=== PATIENT | male | born 1980 | race Caucasian/White ===

== ENCOUNTER 2021-05-05 06:07 | Emergency (ER) | payer MEDICAID ==
--- NOTE | 2021-05-05 06:19 | EDM.PDOC ---
ED HPI GENERAL MEDICAL PROBLEM - General Chief Complaint: Chest Pain Stated Complaint: [facility] Time Seen by Provider: 05/05/21 06:08 Source of Information: Reports: Patient, EMS History Limitations: Reports: No Limitations - History of Present Illness INITIAL COMMENTS - FREE TEXT/NARRATIVE: Kevin is a 40-year-old male brought in by [facility] from [facility] for evalua tion of crushing retrosternal chest pain that awoke the patient at 3 AM today. Patient has a history significant for meth induced pericarditis in 2013 but his last usage of methamphetamine was on 08 March 2021. The patient denies any change of pain with deep inspiration. EMS did a twelve-lead EKG showing repolarization abnormality with ST elevation in most of the leads. Patient has a past medical history significant for methamphetamine use. He is gone through detox and now is in treatment at [facility] for this. He was recently started on amlodipine 10 mg daily and lisinopril 5 mg daily for management of hypertension. He also has a history of chronic low back pain for which he was on gabapentin 300 mg, however, he has not taken this since 03/11/2021. The patient denies any fever, chills, cough or shortness of breath. He is a bit anxious. He denies any nausea or vomiting. He did have a near syncopal episode with EMS as they were walking him through the kitchen. He does report that he got very lightheaded and blacked out. He does not recall having episodes like this before even with his previous episode of pericarditis. Left Chest Pain Score (Numeric/FACES): 6 - Related Data Allergies Allergy/AdvReac Type Severity Reaction Status Date / Time cefaclor [From Ceclor] Allergy Redness Verified 05/05/21 06:12 Home Meds: Home Meds Ketorolac [Toradol] 10 mg PO Q6H #20 tab 05/05/21 [Rx] amLODIPine [Norvasc] 10 mg PO DAILY 05/05/21 [History] lisinopriL [Lisinopril] 5 mg PO DAILY 05/05/21 [History] predniSONE [Prednisone] 40 mg PO DAILY #20 tablet 05/05/21 [Rx] ED ROS GENERAL - Review of Systems Review Of Systems: See Below Constitutional: Reports: No Symptoms HEENT: Reports: No Symptoms Respiratory: Reports: Pleuritic Chest Pain (Part of the pain can be reproduced by palpating over the sternal costal junctions) Cardiovascular: Reports: Chest Pain (Retrosternal chest pressure that does not change with respiration), Blood Pressure Problem Endocrine: Reports: No Symptoms GI/Abdominal: Reports: No Symptoms : Reports: No Symptoms Musculoskeletal: Reports: No Symptoms Skin: Reports: No Symptoms Neurological: Reports: Syncope (Patient had a near syncopal episode while walking through the kitchen with EMS. He became very pale, diaphoretic, and nearly blacked out.) Psychiatric: Reports: Anxiety Hematologic/Lymphatic: Reports: No Symptoms Immunologic: Reports: No Symptoms ED EXAM, GENERAL - Physical Exam Exam: See Below Exam Limited By: No Limitations General Appearance: Alert, Anxious, Mild Distress Eye Exam: Bilateral Eye: EOMI, PERRL Throat/Mouth: Normal Oropharynx, Normal Voice, No Airway Compromise Head: Atraumatic, Normocephalic Neck: Normal Inspection, Supple, Non-Tender, Full Range of Motion. No: Carotid Bruit Respiratory/Chest: No Respiratory Distress, Lungs Clear, Normal Breath Sounds, No Accessory Muscle Use, Other (May build up reproduce some of the pain with palpation over the sternal costal junctions especially on the left.) Cardiovascular: Normal Peripheral Pulses, Regular Rate, Rhythm, No Murmur Peripheral Pulses: 2+: Radial (L), Radial (R) GI/Abdominal: Normal Bowel Sounds, Soft, Non-Tender Back Exam: Normal Inspection, Full Range of Motion Extremities: Normal Inspection, Normal Range of Motion Neurological: Alert, Oriented, Normal Cognition, No Motor/Sensory Deficits Psychiatric: Anxious Skin Exam: Warm, Dry, Intact, Normal Color, No Rash #1 Interpretation EKG Date: 05/05/21 Time: 06:19 Rhythm: NSR Rate (Beats/Min): 68 Salters: Normal P-Wave: Present QRS: Normal (LVH by voltage criteria) ST-T: Normal (ST elevation secondary to early repolarization abnormality) QT: Normal Comparison: NA - No Prior EKG Course - Vital Signs Last Recorded V/S: Last Vital Signs Temp 36.1 C 05/05/21 06:09 Pulse 69 05/05/21 06:09 Resp 12 05/05/21 06:09 BP 130/77 05/05/21 06:09 Pulse Ox 98 05/05/21 06:09 - Orders/Labs/Meds Orders: Active Orders 24 hr Category Date Time Status CBC WITH AUTO DIFF [HEME] Stat Lab 05/05/21 06:17 Results SEDIMENTATION RATE MANUAL [HEME] Stat Lab 05/05/21 06:17 Results EKG 12 Lead [EK] Routine Ther 05/05/21 06:09 Ordered Labs: Laboratory Tests 05/05/21 05/05/21 05/05/21 Range/Units 06:17 06:17 06:17 WBC 6.5 (4.5-11.0) K/uL RBC 4.86 (4.30-5.90) M/uL Hgb 14.8 (12.0-15.0) g/dL Hct 43.5 (40.0-54.0) % MCV 90 (80-98) fL MCH 31 (27-31) pg MCHC 34 (32-36) % Plt Count 313 (150-400) K/uL Neut % (Auto) 59.4 (36-66) % Lymph % (Auto) 27.9 (24-44) % Andrews % (Auto) 8.6 H (2-6) % Eos % (Auto) 3.5 (2-4) % Baso % (Auto) 0.6 (0-1) % PT 10.0 (9.2-10.6) sec INR 1.0 APTT 21.5 (21.4-31.8) sec Sodium 141 (140-148) mmol/L Potassium 4.6 (3.6-5.2) mmol/L Chloride 105 (100-108) mmol/L Carbon Dioxide 27 (21-32) mmol/L Anion Gap 8.6 (5.0-14.0) mmol/L BUN 18 (7-18) mg/dL Creatinine 0.8 (0.8-1.3) mg/dL Est Cr Clr Drug Dosing 136.07 mL/min Estimated GFR (MDRD) > 60 (>60) Glucose 99 (74-106) mg/dL Calcium 9.0 (8.5-10.1) mg/dL Total Bilirubin 0.4 (0.2-1.0) mg/dL AST 22 (15-37) U/L ALT 66 (12-78) U/L Alkaline Phosphatase 66 (46-116) U/L Troponin I < 0.017 (0.000-0.056) ng/mL C-Reactive Protein 0.05 (0.0-0.3) mg/dL Total Protein 7.0 (6.4-8.2) g/dL Albumin 3.9 (3.4-5.0) g/dL Globulin 3.1 (2.3-3.5) g/dL Albumin/Globulin Ratio 1.3 (1.2-2.2) Meds: Medications Discontinued Medications Generic Name Dose Route Start Last Admin Trade Name Serjio PRN Reason Stop Dose Admin Ketorolac Tromethamine 30 mg 05/05/21 06:23 05/05/21 06:33 Ketorolac 30 Mg/Ml Sdv IM 05/05/21 06:24 Not Given ONETIME ONE Ketorolac Tromethamine 30 mg 05/05/21 06:28 05/05/21 06:33 Ketorolac 30 Mg/Ml Sdv IVPUSH 05/05/21 06:29 30 mg ONETIME ONE Administration - Re-Assessments/Exams Free Text/Narrative Re-Assessment/Exam: 05/05/21 07:02 labs were reviewed showing a normal CBC, comprehensive metabolic panel, C-reactive protein, troponin I, PT and PTT. The patient was given Toradol 30 mg IV with improvement in his symptoms. His symptoms are consistent with acute costochondritis. With a negative CRP and troponin this is unlikely to be pericarditis or myocarditis. I will put him on prednisone 40 mg daily for 5 days and Toradol 10 mg p.o. 4 times daily for 5 days to treat the costochondritis. At this time he is suitable for discharge back to [facility]. Departure - Departure Time of Disposition: 07:05 Disposition: DC/Tfer to Other Reason for Transfer *Q: Other Clinical Impression: Acute costochondritis Instructions: Costochondritis, [id number] Forms: ED Department Discharge Care Plan Goals: Prep today has shown that she likely have inflammation between the sternum (breastbone) and costal junctions (ribs) causing your chest pain. I am putting you on a pill form of what she received in the shot called Toradol 10 mg by mouth 4 times a day for the next 5 days to reduce pain and inflammation as well as prednisone 40 mg daily for 5 days. This should resolve your symptoms. Good luck with sobriety and I hope that you are successful in your treatment. Sepsis Event Note (ED) - Focused Exam Vital Signs: Vital Signs Temp Pulse Resp BP Pulse Ox 05/05/21 06:09 36.1 C 69 12 130/77 98 - Problem List & Annotations (1) Acute costochondritis SNOMED Code(s): 60771015, 66528562 Code(s): M94.0 - CHONDROCOSTAL JUNCTION SYNDROME [TIETZE] Status: Acute Priority: Medium Current Visit: Yes - Problem List Review Problem List Initiated/Reviewed/Updated: Yes - My Orders Last 24 Hours: My Active Orders 05/05/21 06:09 EKG 12 Lead [EK] Routine 05/05/21 06:17 CBC WITH AUTO DIFF [HEME] Stat SEDIMENTATION RATE MANUAL [HEME] Stat - Assessment/Plan Last 24 Hours: My Active Orders 05/05/21 06:09 EKG 12 Lead [EK] Routine 05/05/21 06:17 CBC WITH AUTO DIFF [HEME] Stat SEDIMENTATION RATE MANUAL [HEME] Stat
[2021-05-05] MEDS ORDERED: Ketorolac 30 MG/ML SDV IM ONE (06:23)
[2021-05-05] MEDS ORDERED: Ketorolac 30 MG/ML SDV IVPUSH ONE (06:28)
== END 2021-05-05 07:47 | disposition other institution (70) ==
LOC: JP.ED 06:07
DX: M94.0 Chondrocostal junction syndrome [Tietze] (principal); Z88.1 Allergy status to other antibiotic agents
CPT/HCPCS: 36415; 80053; 84484; 85025; 85610; 85651; 85730; 86140; 93005; 96374; 99285; J1885